=== PATIENT | male | born 2005 | race Caucasian/White ===

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

== ENCOUNTER 2025-08-19 10:58 | Outpatient (REF) | payer MEDICAID, SELFPAY ==
--- NOTE | ~2025-08-19 | XR_ITS ---
EXAMINATION: XR HAND, RIGHT CLINICAL INFORMATION: 19 y/o M with chronic right hand pain over 5th digit. COMPARISON: None TECHNIQUE: Three views of the right hand. FINDINGS: Fifth digit: No acute fracture or dislocation. Joint spaces are maintained. No erosions. No abnormal soft tissue calcification. In the remainder of the osseous structures, no visible acute fracture or malalignment.. No significant joint space narrowing or marginal osteophytes. No osseous erosion. No abnormal soft tissue calcification. XR/XR hand RT min 3V IMPRESSION: No acute osseous findings Electronically signed by: Jonathon Membreno MD 08/19/2025 12:00 PM EDT
--- OUTSIDE RECORDS SUMMARY | 2025-08-19 13:28 | XMS_ITS | Encounter Summary ---
Author Organization [employer] [facility] Address [address] [place] [address] Care Team Providers Care Creative Services Designer Name Role Phone Alta Garcia Primary Care Provider [phone] Reason for Visit * Reason Comments Med Refill Encounter Details Date Type Department Care Team ([facility] st Contact Info) Description 03/14/2023 Refill [facility] [address] [place] [address] Alta Garcia FNP [address] [place] [address] Social History Tobacco Use Types Packs/Day Years Used Date Smoking Tobacco: Never Assessed Sex and Gender Information Value Date Recorded Sex Assigned at Male 09/04/2022 10:32 AM EDT Legal Sex Male 10:32 AM EDT Gender Identity Male 09/04/2022 10:32 AM EDT Sexual Orientation Straight 09/04/2022 10 :32 AM EDT documented as of this encounter Plan of Treatment Not on file documented as of this encounter Visit Diagnoses Not on filedocumented in this encounter Care Teams Creative Services Designer Relationship Specialty Start Date End Date Alta Garcia FNP [address] [place] [address] PCP - General Family Medicine 06/19/22 documented as of this encounter
--- OUTSIDE RECORDS SUMMARY | 2025-08-19 13:28 | XMS_ITS | Encounter Summary ---
Author Organization [employer] Address [address] [place] [address] [address] [place] [address] Care Team Providers Care Waxer Operator Name Role Phone Alta Garcia Primary Care Provider [phone] Encounter Details Date Type Department Care Team (Late st Contact Info) Description 06/14/2023 Orders Only [facility] [address] [place] [address] Lilliana Dos Santos LPN Social History Tobacco Use Types Packs/Day Years [...] on filedocumented in this encounter Care Teams Waxer Operator Relationship Specialty Start Date End Date Alta Garcia FNP [address] [place] [address] PCP - General Family Medicine 06/19/22 documented as of this encounter
--- OUTSIDE RECORDS SUMMARY | 2025-08-19 13:28 | XMS_ITS | Data Portability ---
Author Organization [place] [facility], All[facility] Address [address] [place] [id number] Care Team Providers Care Phd Intern Name Role Phone KALE BENAVIDES Primary Care Provider Assessment Encounter Date Assessment Date Assessment LastModified by Organization Details LastModified Time 01/29/2025 01/29/2025 The patient tolerated drainage of peritonsillar abscess well. I stressed the importance of completing the full course of medication and the fact that symptoms can and often do worsen if this is not done. Pain control with tylenol and motrin are encouraged. Efforts to maintain hydration and adequate nutrition are strongly advised. They will followup in a week or sooner if symptoms worsen. Typically I do not recommend removal of tonsils unless there is evidence of recurrence of peritonsillar abscess within 1 year or the severity of infections merits tonsillectomy. All questions were answered. [email or web address] Not available 01/29/2025 14:58:53 02/05/2025 02/05/2025 19-year-old male presents following peritonsillar abscess incision and drainage 1 week ago. Denies prior [employer] or recurrent streptococcal pharyngitis. He reports significant symptom improvement. Patient denies pharyngitis, dysphagia, trismus, or new concerns. Exam demonstrates tonsils with 1+ hypertrophy. Soft palate right sided incision healing well. Recommend patient complete oral Augmentin and return as needed with worsening symptoms. We discussed patient is not indicated for tonsillectomy at this time. [email or web address] Not available 02/05/2025 13:47:53 Plan of Treatment Reminders Order Date Submit Date Provider Last Modified By Organization Details Last Modified Time Details Appointments Establish ed 15 2024 10:00A M WYATT ZAMORA PA-C Not available Not available Not available Lab None recorded. Referral None recorded. Procedures None recorded. Surgeries None recorded. Imaging None recorded. Medication Orders None recorded. Patient TargetsNo targets recorded. Patient InstructionsNo instructions recorded. Reason for Referral None Reported. Problems Name Problem SNOMED Code Status Onset Date Resolution Date Notes Provider Name and Address Organization Details Recorded Time Peritonsillar abscess 61794968 Active 2024 LAURY ORDAZ MD [address] [facility], [place], [address], [facility] - [facility] 14:58:58 Chronic rhinitis 19232486 Active 2024 WYATT ZAMORA PA-C [address] [facility], [place], [address], [facility] - [facility] 10:15:57 Acute tonsillitis 29363925 Active 2024 WYATT ZAMORA PA-C [address] [facility] [address], [place], [address], [facility] 10:17:03 Problem Notes None recorded. Procedures Surgical History Date Name Laterality Status Provider Name and Address Organization Details Recorded Time 01/30/20 25 I & D Peritonsillar Abscess completed LAURY ORDAZ MD [address] [facility],[place] [address], [place], [address], [facility] 01/29/2025 15:12:42 Imaging Results None recorded. Procedure Notes None recorded. Medical Equipment None Reported. Allergies No known drug allergies Medications Name Sig Start Date Stop Date Status Note LastModified by Organization Details LastModified Time betamethason e valerate 0.1 % topical cream APPLY TOPICALLY IF NEEDED IN THE MORNING AND AT BEDTIME FOR RASH. USE FOR UP TO 1 WEEK active Not Available Not Available No t Available ibuprofen 200 mg tablet TAKE 3 TABLETS BY MOUTH EVERY 8 HOURS NEEDED FOR PAIN / FOR SWELLING active Not Available Not Available No t Available loratadine 10 mg tablet Take 1 tablet every day by oral route at bedtime for 42 days, for environment al allergies. 2024 active Not Available Not Available Not Avai lable amoxicillin 875 mg-potassium clavulanate 125 mg tablet TAKE 1 TABLET BY MOUTH TWICE DAILY FOR 14 DAYS active Not Available Not Available No t Available blood pressure test kit-large cuff USE TO CHECK BLOOD PRESSURE TWICE DAILY active Not Available Not Available Not Available Vitals Date Recorded Body height Body mass index (BMI) Body mass index (BMI) [Percentile] Per age and sex Body weight Provider Name and Address Organization Details Last Updated DateTime 01/29/2025 175.26 cm 35.4 kg/m2 97.89 % 484630.1 7 g RUBI BRYANT [facility] 01/29/2025 14:56:20 Date Recorded Body height Body mass index (BMI) Body mass index (BMI) [Percentile] Per age and sex Body weight Provider Name and Address Organization Details Last Updated DateTime 02/05/2025 175.26 cm 35.4 kg/m2 97.89 % 525145.1 7 g Lydia Riveramaximilian [facility] 02/05/2025 13:18:36 Social History None recorded. Functional Status Question Answer Note LastModified by Organization D etails LastModified Time What is your level of alcohol consumption? None [email or web address] Information not available 01/29/2025 Mental Status None recorded. Family History Nothing Reported. Medical History No medical history recorded. Past Encounters Encounter ID Performer Location Encounter Start Date Encounter Closed Date Diagnosis/Indication Diagnosis SNOMED-CT Code Diagnosis ICD10 Code Diagnosis IMO Codes Diagnosis Note [id number] LAURY ORDAZ MD [facility] [address] [address] 01/29/2025 14:20:02 01/29/2025 15:16:48 Peritonsillar abscess 50076223 J36 [id number] WYATT ZAMORA PA-C [facility] [address] [address] 02/05/2025 13:14:05 02/05/2025 13:42:36 Peritonsillar abscess 32310577 J36 [id number] WYATT ZAMORA PA-C [facility] [address] [address] 08/19/2025 09:36:04 08/19/2025 10:16:06 Chronic rhinitis 13109938 J31.0 2545 Acute tonsillitis 133481 08 J03.90 933091308 resolved Health Concerns Section Related Observation LastModified by Organization Detai ls LastModified Time None Recorded Concern Status LastModified by Organization Details LastModified Time None Recorded Advance Directives Directive None Recorded Payers Insurance Date Sequence Insurance Name Policy Number Policy Frank Covered Member ID Frank Member ID Guarantor Name 08/19/2025 1 [place] [facility] Jimy Moulton [id number] Jimy Moulton Notes Date Note Type Note Provider Name and Address Organization Details Recorded Time 01/29/2025 text/html ROS as noted in the HPI IPad - Spanish[facility] began last Sunday - about 11 days agorx augmentin 01/26/25 01/28/2025 [place], CT neck with contrastRight tonsil 17 mm low-density area. Bilateral tonsil enlargement. LAURY ORDAZ MD [address] [place] [address], [phone], [place] - [facility] 01/29/2025 15:14:23 02/05/2025 text/html ROS as noted in the HPI 19-year-old male presents following peritonsillar abscess incision and drainage 1 week ago. He is currently taking Augmentin. He reports significant symptom improvement. Patient denies throat pain, difficulty swallowing, or new concerns. LAURY ORDAZ MD [address] [place] [address],[address], [phone], [place] - [facility] 02/05/2025 20:41:07
--- OUTSIDE RECORDS SUMMARY | 2025-08-19 13:28 | XMS_ITS | Clinical Summary ---
Author Organization [employer] Address [address] [facility] 7 [place] [address] Care Team Providers Care Ocular Care Technician Name Role Phone Alta Garcia STEREO EQUIPMENT INSTALLER Primary Care Provider [phone] Allergies No known active allergies Medications cetirizine (ZyrTEC) 10 MG tablet Take 1 tablet (10 mg) by mouth in the morning. 90 tablet 3 3 Active albuterol (Ventolin HFA) 108 (90 Base) MCG/ACT inhalerIndication s:Mild persistent asthma without complication INHALE 1 PUFF BY MOUTH EVERY 4-6 HOURS NEEDED. ADMINISTER WITH SPACER 18 g 11 3 Active montelukast (Singulair) 10 MG tablet Take 1 tablet (10 mg) by mouth at bedtime. 90 tablet 3 4 Active Blood Pressure kitIndications:El evated blood pressure reading 1 each 2 times daily. 1 kit 5 01/27/20 26 Active ibuprofen 200 MG tabletIndications :Sore throat 3 tablets every 8 hours as needed for pain/swelling 100 tablet 5 Active betamethasone valerate (Valisone) 0.1 % creamIndications: Dermatitis Apply topically if needed in the morning and at bedtime for rash. Use for up to 1 week 15 g 1 5 Active Active Problems Problem Noted Date Diagnosed Date Recurrent peritonsillar abscess 07/07/2025 Assessment & Plan (07/07/2025 9:08 PM EDT): Referral to ENT placed 07/03/25 Healthcare maintenance 07/07/2025 Assessment & Plan (07/07/2025 9:09 PM EDT): OPH: [facility] Last PE: 07/03/25 Seasonal allergies 10/05/2023 10/05/2023 Overview (07/07/2025): Continue cetirizine 10mg daily PRN Continue montelukast 10mg nightly Vitamin D deficiency 10/05/2023 10/05/2023 Overview (07/07/2025): Lab Results Component Value Date [id number] 15.4 (L) 02/04/2024 - Tx with Vit D 2000 units daily x 3 months Assessment & Plan (07/07/2025 2:40 PM EDT): - Due to repeat Vit D level Assessment & Plan (12/30/2023 2:24 PM EST): -Vit D 12.4 ng/mL in Oct 2023 -Tx with Vit D 2000 units daily x 2 months. Almost completed course of med, plan to then recheck labs Assessment & Plan (10/07/2023 1:55 PM EST): -Repeat Vit D ordered Mild intermittent asthma without complication 10/05/2023 Overview (10/07/2023): Well controlled Cont albuterol PRN Reviewed rule of 2s to eval for good control at home Myopia 01/16/2018 10/05/2023 Assessment & Plan (07/07/2025 2:41 PM EDT): Followed by [facility] Glasses rx last dispensed Jun 2025 Resolved Problems Problem Noted Date Diagnosed Date Resolved Date Normocytic anemia 02/08/2018 10/05/2023 12/30/2023 Assessment & Plan (10/07/2023 1:40 PM EST): -previously resolved, will recheck CBC Childhood obesity 01/16/2018 10/05/2023 07/07/2025 Overview (12/30/2023): Wt Readings from Last 4 Encounters: 12/28/23 263 lb 8 oz (120 kg) (>99%, Z= 2.65)* 10/05/23 282 lb 9.6 oz (128 kg) (>99%, Z= 2.90)* 12/22/22 274 lb 8 oz (125 kg) (>99%, Z= 2.93)* 09/18/22 266 lb 9.6 oz (121 kg) (>99%, Z= 2.89)* * Growth percentiles are based on CDC (Boys, 2-20 Years) data. Intentional weight loss of almost 20 lbs over the past 2-3 months through lifestyle interventions (primarily motivated by participating with school wrestling team) Assessment & Plan (12/30/2023 2:27 PM EST): Congratulated on exercise and healthy eating behaviors. Likely also contributing to improved BP values. Encouraged to cont with lifestyle interventions. Encounters Date Type Department Care Team Description 07/03/2025 10:00 AM EDT Office Visit [facility] [address] [place] [address] Alta Garcia FNP Encounter for routine history and physical examination of adult (Primary Dx); Right hand pain; Dermatitis; Recurrent peritonsillar abscess; Healthcare maintenance; Dietary counseling; Exercise counseling; Vitamin D deficiency; Mild intermittent asthma without complication; Myopia, unspecified laterality; Seasonal allergies 07/03/2025 Travel 07/02/2025 Telephone [facility] [address], [place] [phone] Alta Garcia FNP Chart Prep 06/26/2025 Patient Outreach [facility] [address] [place], [place] [phone] Alta Garcia FNP Pre-visit Planning (Pre visit planning LVM ) 06/11/2025 9:45 AM EDT Office Visit [facility] [address] [place], [place] [phone] Haris, Joyce, OD Myopia of both eyes (Primary Dx) from Last 3 Months Immunizations Immunization Administration Dates Next Due DTaP 12/21/2009, 7,07/02/2006,04/25,02/22/2006 HPV 9-Valent 02/28/2017 HPV, Unspecified 10/16/2017 Hep A, ped/adol, 2 dose 07/22/2007,01/18/2007 Hep B, Adolescent or Pediatric 07/02/2006,2005,02/22/2006 HiB, unspecified 03/18/2007,04/25/2006 Hib (PRP-T) 02/22/2006 IPV 12/21/2009, 6,04/25/2006,02/22 MMR 12/23/2009,01/18/2007 Meningococcal MCV4P ACYW-135 02/28/2017 Meningococcal Polysaccharide A,C,Y,W-135 TT Conjugate 09/18/2022 Pneumococcal Conjugate PCV 13 03/18/2007 ,07/02/2006,04/25/2006,02/22 TD (adult), 2 Lf tetanus tox oid, preservative free, adsorbed 02/28/2017 Tdap 02/28/2017 Varicella 12/23/2009,01/18/2007 Family History Medical History Relation Name Comments Hypertension Father Diabetes Maternal Grandfather Diabetes Mother Throat cancer Paternal Grandfather Relation Name Status Comments Father Maternal Grandfather Mother Paternal Grandfather Social History Tobacco Use Types Packs/Day Years Used Date Smoking Tobacco: Never Smokeless Tobacco: Never Tobacco Cessation:Counseling Given: Not Answered Alcohol Use Standard Drinks/Week Comments Never 0 (1 standard drink = 0.6 oz pur e alcohol) Depression Answer Date Recorded Patient Health Questionnaire-9 Score 3 07/03/2025 Patient Health Questionnaire-9 Score 3 07/03/2025 Last PHQ-9: Questionnaire Data Not on file 0 07/03/2025 Housing Stability Answer Date Recorded What is your housing situation today? I have [place] 03/23/[address] you li ve. Do you have problems with any of the following? None of the above 03/23/2025 Food Insecurity Answer Date Recorded Within the past 12 months, y ou worried that your food would run out before you got money to buy more: Never True 03/23/2025 Within the past 12 months,th e food you bought just didn't last and you didn't have enough money to get more: Never True Transportation Answer Date Recorded In the past 12 months, has l ack of transportation kept you from medical appts, meetings, work or from getting things needed for daily living? No 03/23/2025 Utilities Answer Date Recorded In the past 12 months, has t he electric, gas, oil or water company threatened to shut off services in your home? No 03/23/2025 Depression Answer Date Recorded Patient Health Questionnaire-2 Score 1 07/03/2025 Internet Access Answer Date Recorded Internet Access Q1 Yes 03/23/2025 Internet Access Q2 Not on file 03/23/2025 Sex and Gender Information Value Date Recorded Sex Assigned at Male 09/04/2022 10:32 AM EDT Legal Sex Male 10:32 AM EDT Gender Identity Male 09/04/2022 10:32 AM EDT Sexual Orientation Straight 09/04/2022 10 :32 AM EDT Last Filed Vital Signs Vital Sign Reading Time Taken Comments Blood Pressure 135/72 07/03/2025 10:16 AM EDT Pulse 68 07/03/2025 10:16 AM EDT Temperature 36.7 C (98 F) 07/03/2025 10:16 AM EDT Respiratory Rate 19 07/03/2025 10:16 AM EDT Oxygen Saturation 97% 07/03/2025 10:16 AM EDT Inhaled Oxygen Concentration - - Weight 120 kg (264 lb 8 oz) 07/03/2025 10:16 AM EDT Height 175.3 cm (5' 9 ) 07/03/2025 10:16 AM EDT Body Mass Index 39.06 07/03/2025 10:16 AM EDT Plan of Treatment Health Maintenance Due Date Last Done Comments Chlamydia and Gonorrhea Screening 2005 HIV Screening 2005 Pneumococcal Vaccine: Pediatrics (0 to 5 Years) and At-Risk Patients (6 to 49) Years (1 of 1 - PPSV23) 2011 03/18/2007, 07/02/2006, 04/25/2006, Additional history exists Family Planning (PISQ) 2020 Meningococcal B Vaccine (1 of 2 - Standard) 2021 Hepatitis C Screening 2023 Fluoride Varnish 10/06/2024 05/20/2021, 02/2021, 01/06/2020, Additional history exists COVID-19 Vaccine ( - season) 2025 Influenza Vaccine (#1) 2025 SDOH Screening 03/23/2026 03/23/2025 Alcohol/Substance Use Screening 07/03/2026 07/03/2025 Depression Screening 07/03/2026 07/03/2025, 07/03/20 25 Disability Screening 07/03/2026 07/03/2025 Tobacco Screening 07/03/2026 07/03/2025 DTaP/Tdap/Td Vaccines (7 - Td or Tdap) 02/28/2027 02/28/2017, 02/28/2017, 12/21/2009, Additional history exists Zoster Vaccines (1 of 2) 2055 RSV Patients and Patients Aged 60 years or older (1 - 1-dose 75+ series) 2080 Hepatitis B Vaccines Completed 07/02/2006, 04/25/2006, 02/22/2006 HIB Vaccines Completed 03/18/2007, 04/06, 02/22/2006 Hepatitis A Vaccines Completed 07/22/2007, 01/19/20 07 IPV Vaccines Completed 12/21/2009, 06/06, 04/25/2006, Additional history exists MMR Vaccines Completed 12/23/2009, 01/18/2007 Varicella Vaccines Completed 12/23/2009, 01/18/2007 HPV Vaccines Completed 10/16/2017, 02/28/2017 Meningococcal Vaccine Completed 09/18/2022, 017 RSV under 20 months Aged Out No longe r eligible based on patient's age to complete this topic Rotavirus Vaccines Aged Out No longer eligible based on patient's age to complete this topic Procedures Procedure Name Priority Date/Time Associated Diagnosis Comments XR HAND 3+ VIEWS RIGHT Routine 08/19/2025 11:28 AM EDT Right hand pain TOPICAL APPLICATION OF FLUORIDE VARNISH Routine 05/20/2021 12:00 AM EDT from Last 3 Months or Most Recently Relevant to Health Maintenance Results * XR Hand 3+ Views Right (08/19/2025 11:28 AM EDT) Anatomical Region Laterality Modality Upper Extremities, Hand Right [facility] 08/19/2025 11:2 8 AM EDT Narrative 08/19/2025 12:03 PM EDT [address] [address] XRay Report Signed Patient: Jimy Fisher MR#: [id number] : 2005 Acct:[id number] Age/Sex: 19 / M ADM Date: 08/19/25 Loc: [facility] Attending Dr: Alta TRACEY Ordering Physician: Alta Garcia Date of Service: 08/19/25 Procedure(s): XR hand RT min 3V Accession Number(s): [id number] cc: Alta Garcia Reason for Exam: 19 y/o M with chronic right hand pain over 5th digit. EXAMINATION: XR HAND, RIGHT CLINICAL INFORMATION: 19 y/o M with chronic right hand pain over 5th digit. COMPARISON: None TECHNIQUE: Three views of the right hand. FINDINGS: Fifth digit: No acute fracture or dislocation. Joint spaces are maintained. No erosions. No abnormal soft tissue calcification. In the remainder of the osseous structures, no visible acute fracture or malalignment.. No significant joint space narrowing or marginal osteophytes. No osseous erosion. No abnormal soft tissue calcification. XR/XR hand RT min 3V IMPRESSION: No acute osseous findings Electronically signed by: Jonathon Membreno MD 08/19/2025 12:00 PM EDT Dictated By: Jonathon Membreno MD Signed By: <Electronically signed by Jonathon Memberno MD in OV> 08/19/25 1200 DD/ 1128 TD/TT: 08/19/25 1132 Veterinary X Ray Operator: RADHA Procedure Note Donotuseinterpreter, Image - 08/19/[address] [address] XRay Report Signed Patient: Goldie FisherR#: [id number] : 2005cct:[id number] Age/Sex: 19 / MADM Date: 08/19/25 Loc: [facility] Attending Dr: Alta TRACEY Ordering Physician: Alta Garcia Date of Service: 08/19/25 Procedure(s): XR hand RT min 3V Accession Number(s): [id number] cc: Alta Garcia Reason for Exam: 19 y/o M with chronic right hand pain over 5th digit. EXAMINATION: XR HAND, RIGHT CLINICAL INFORMATION: 19 y/o M with chronic right hand pain over 5th digit. COMPARISON: None TECHNIQUE: Three views of the right hand. FINDINGS: Fifth digit: No acute fracture or dislocation. Joint spaces are maintained. No erosions. No abnormal soft tissue calcification. In the remainder of the osseous structures, no visible acute fracture or malalignment.. No significant joint space narrowing or marginal osteophytes. No osseous erosion. No abnormal soft tissue calcification. XR/XR hand RT min 3V IMPRESSION: No acute osseous findings Electronically signed by: Jonathon Membreno MD 08/19/2025 12:00 PM EDT RP Dictated By: Jonathon Membreno MD Signed By: <Electronically signed by Jonathon Membreno MD in OV> 08/19/25 1200 DD/ 1128 TD/TT: 08/19/25 1132 Veterinary X Ray Operator: RADHA Alta TRACEY IMG XR PROCEDURES Final Result from Last 3 Months Insurance C3 Care Teams Ocular Care Technician Relationship Specialty Start Date End Date Alta Garcia FNP [address] [place] [id number] PCP - General Family Medicine 06/19/22
--- OUTSIDE RECORDS SUMMARY | 2025-08-19 13:28 | XMS_ITS | Encounter Summary ---
Author Organization [employer] Address [address] [address] Care Team Providers Care Arranging Funeral Director Name Role Phone Alta Garcia DIORAMIST Primary Care Provider [phone] Reason for Visit * Reason Comments Med Refill Encounter Details Date Type Department Care Team ([facility] st Contact Info) Description 01/08/2023 Refill [facility] [address] [place], [place] [phone] Shweta Hernandez DO [address] [place], [place] [phone] Social History Tobacco Use Types Packs/Day Years Used Date Smoking Tobacco: Never Assessed Sex and Gender Information Value Date Recorded Sex Assigned at Male 09/04/2022 10:32 AM EDT Legal Sex Male 10:32 AM EDT Gender Identity Male 09/04/2022 10:32 AM EDT Sexual Orientation Straight 09/04/2022 10 :32 AM EDT COVID-19 Exposure Response Date Recorded In the last 10 days, have yo u been in contact with someone who was confirmed or suspected to have Coronavirus/COVID-19? No / Unsure 12/22/2022 1:07 PM EST documented as of this encounter Miscellaneous Notes * Telephone Encounter - Flower Esteves RN - 01/09/2023 11:48 AM EST Telephone call to the pt's mom at the request of Dr. Hernandez regarding the pt's request for a Doxycycline refill . Mom states the pt is requesting a refill for the Doxycycline . States the pt has only been taking the medication for one month . Mom was advised to check with the pharmacy on file and to please call back if another refill is needed. Mom verbalized understanding ,and agrees with the plan. Will route this message to Dr Ross for review . documented in this encounter Plan of Treatment Not on file documented as of this encounter Visit Diagnoses Not on filedocumented in this encounter Care Teams Arranging Funeral Director Relationship Specialty Start Date End Date Alta Garcia FNP [address] [place] [id number] PCP - General Family Medicine 06/19/22 documented as of this encounter
--- OUTSIDE RECORDS SUMMARY | 2025-08-19 13:28 | XMS_ITS | Encounter Summary ---
Author Organization [employer] Address [address] [place] [address] Care Team Providers Care Traffic Assistant Name Role Phone Alta Garcia Primary Care Provider [phone] Reason for Visit * Reason Comments Med Refill Encounter Details Date Type Department Care Team ([facility] st Contact Info) Description 04/28/2023 Refill [facility] [address] [place] [address] Alta Garcia FNP [address] [place] [address] Social History Tobacco Use Types Packs/Day Years [...] on filedocumented in this encounter Care Teams Traffic Assistant Relationship Specialty Start Date End Date Alta Garcia FNP [address] [place] [address] PCP - General Family Medicine 06/19/22 documented as of this encounter
--- OUTSIDE RECORDS SUMMARY | 2025-08-19 13:28 | XMS_ITS | Encounter Summary ---
Author Organization [employer] Address [address] [place] [address] Care Team Providers Care Physically Impaired Teacher Name Role Phone Alta Garcia Primary Care Provider [phone] Encounter Details Date Type Department Care Team (Late st Contact Info) Description 06/01/2023 Orders Only [facility] [address] [place] [address] Lamar Torres LPN Social History Tobacco Use Types Packs/Day [...] on filedocumented in this encounter Care Teams Physically Impaired Teacher Relationship Specialty Start Date End Date Alta Garcia FNP [address] [place] [address] PCP - General Family Medicine 06/19/22 documented as of this encounter
[2025-08-19 14:15] LABS: MANUAL DIFF FLAG NO
[2025-08-19 14:16] LABS: Hematocrit 44.9 % (42.0-52.0); Hemoglobin 14.1 g/dl (14.0-18.0); Imm Gran Abs Auto 0.06 X10*3/uL (0.00-0.03); Imm Gran Pct Auto 1.0 % (0.0-0.4); Lymphocytes Absolute Auto 1.9 X10*3/uL (1.2-4.9); Mean Corpuscular HGB Conc 31.4 g/dl (31.0-36.0); Mean Corpuscular Hemoglobin 26.6 pg (27.0-33.0); Mean Corpuscular Volume 84.7 fL (80.0-98.0); NRBC Abs Auto 0.000 X10*3/uL (0.0-0.012); NRBC Pct Auto 0.0 /100WBC (0.0-0.2); Platelet Count 260 X10*3/uL (160-400); Red Blood Count 5.30 X10*6/uL (4.60-5.80); White Blood Count 6.3 X10*3/uL (4.8-10.8)
[2025-08-19 14:42] LABS: Alanine Aminotransferase 32 U/L (0-40); Albumin Level 4.5 g/dL (3.5-5.0); Anion Gap 11 (12-20); Aspartate Amino Transferase 35 U/L (5-37); Blood Urea Nitrogen 10 mg/dL (9-16); Calcium 9.4 mg/dL (8.4-10.2); Carbon Dioxide 26 mmol/L (22-29); Chloride 105 mmol/L (96-108); Cholesterol 169 mg/dL (<200); Estimated Glomerular Filt Rate > 60; HDL Cholesterol 55 mg/dL (>40); Potassium 4.3 mmol/L (3.3-5.1); Sodium 138 mmol/L (135-145); Total Protein 8.0 g/dL (6.5-8.0); Triglycerides 55 mg/dL (<150)
[2025-08-19 14:43] LABS: Hemoglobin A1C 121.6678 umol/L; Total Hemoglobin (HGBA1C) 3560.7541 umol/L
[2025-08-19 14:55] LABS: Alkaline Phosphatase 63 U/L (39-117)
== END 2025-08-19 10:59 | disposition home or self-care (01) ==
LOC: HO.CHCLDS 10:58
PROVIDERS: PCP Registered Nurse; Visit Provider Registered Nurse
DX: Z00.00 Encounter for general adult medical examination without abnormal findings (principal); M79.641 Pain in right hand
CPT/HCPCS: 36415; 73130; 80053; 80061; 82306; 83036; 84443; 85025

== ENCOUNTER → 2025-08-19 11:26 | Outpatient (BNV) | payer MEDICAID, SELFPAY | PROVIDERS: PCP Registered Nurse; Visit Provider Radiology Diagnostic Ultrasound | DX: M79.644 Pain in right finger(s) (principal) | CPT/HCPCS: 73130 ==